=== PATIENT | female | born 1985 | race Caucasian/White ===

== ENCOUNTER → 2021-04-27 | Outpatient (CLI) | payer OTHER ==
--- NOTE | 2021-04-27 16:31 | KCIC ---
EXAM: Brain MRI without contrast. HISTORY: Optic neuritis. Nausea. Memory loss. TECHNIQUE: Multiplanar, multisequence magnetic resonance imaging of the brain was performed without i ntravenous contrast. COMPARISON: None. FINDINGS: There is no restricted diffusion to suggest acute or subacute infarction. There is no susce ptibility effect to suggest hemorrhage. There is no mass effect or midline shift. There is no hydroce phalus. There is a single tiny focus of signal change within the inferior right frontal subcortical w shivam matter. This best seen on sagittal FLAIR images. There is minimal left maxillary sinus mucosal thickening and a small left maxillary sinus mucous rete ntion cyst. The orbits are unremarkable. The mastoid air cells are clear. There are normal flow voids within the cerebral vessels. There is no suspicious calvarial lesion. IMPRESSION: 1. No acute intracranial finding. 2. Single tiny focus of signal change within the right subcortical white matter. The differential inc ludes changes due to chronic small vessel disease and chronic migraine headaches. The imaging appeara nce does not favor demyelinating disease. 3. Note is made that a dedicated orbital MRI protocol with and without contrast may be useful for anamika racterization in this patient with a history of optic neuritis, and if clinically indicated. The orbi ts are unremarkable on this noncontrast brain MRI. Electronically signed by: Gail Landa MD (04/27/2021 4:29 PM) [id number]
== END ==
LOC: KCIC MRI 14:58
PROVIDERS: ATTEND Physician Assistant
DX: G43.909 Migraine, unspecified, not intractable, without status migrainosus (principal); R41.3 Other amnesia; H54.62 Unqualified visual loss, left eye, normal vision right eye; H46.9 Unspecified optic neuritis; R11.0 Nausea; I73.9 Peripheral vascular disease, unspecified; J34.89 Other specified disorders of nose and nasal sinuses
CPT/HCPCS: 70551

== ENCOUNTER → 2021-06-12 | Outpatient (CLI) | payer OTHER ==
[~2021-06-12] MED LIST: LIDOCAINE WITH 8.4% SOD BICARB 3 ML DISP.SYRIN. INJ ONE
[2021-06-12 10:46] VITALS: BP 122/76
[2021-06-12 11:00] VITALS: BP 97/75
--- NOTE | 2021-06-12 11:02 | RAD ---
EXAM: Fluoroscopic guided lumbar puncture. HISTORY: Optic neuritis. TECHNIQUE: The risks of the procedure were discussed with the patient and written and verbal consent was obtained. A timeout was performed. The patient was placed in a prone position on the fluoroscopic table and a suitable entry site into the central canal through the L3-L4 interlaminar space was iden tified with fluoroscopic guidance. This site was prepped and draped in sterile fashion. 1% lidocaine solution without epinephrine was i nfiltrated into the skin and deep soft tissues along the expected needle track. A 22-gauge spinal ne edle was advanced into the thecal sac with intermittent fluoroscopic guidance. A total of 12 mL CSF was collected and sent to the laboratory for requested analysis. The needle was removed and a sterile bandage was placed. The patient tolerated the procedure without complication. The patient was monitored in the post residual unit for approximately 1 hour and was discharged in st able condition without immediate complication. The total fluoroscopy time was less than 1 minute. IMPRESSION: Fluoroscopic guided lumbar puncture with a yield of 12 cc CSF for laboratory analysis. Electronically signed by: Gail Landa MD (06/12/2021 11:00 AM) [id number]
[2021-06-12 11:15] VITALS: BP 147/9
[2021-06-12 11:29] VITALS: BP 137/80
--- NOTE | 2021-06-12 11:29 | NUR ---
discharge instructions reviewed with patient. Pt denies headache at this time
[2021-06-12 11:53] LABS: CSF PROTEIN 41.3 mg/dL (15.0-45.0)
[2021-06-12 12:08] LABS: CSF CLARITY CLEAR; CSF COLOR COLORLESS; CSF RBC COUNT 2 /cmm (Not Established); CSF WBC COUNT 1 /cmm (Not Established)
[2021-06-15 16:10] LABS: ALBUM 3.5 g/dL (2.9-4.4); ALPHA 1 0.3 g/dL (0.0-0.4); ALPHA 2 0.8 g/dL (0.4-1.0); BETA 1.2 g/dL (0.7-1.3); PROTEIN TOTAL 6.7 g/dL (6.0-8.5); SPEP AG RATIO 1.1 (0.7-1.7)
[2021-06-15 20:08] LABS: ANA INTERP Negative (.)
[2021-06-16 15:13] LABS: ALBUMIN,CSF 21 mg/dL (7-29); ALBUMIN,SERUM 4.3 g/dL (3.8-4.8); CSF IGG INDEX 0.8 (0.0-0.7); IGG,SERUM 879 mg/dL (586-1602)
== END | disposition home or self-care (01) ==
LOC: RAD 10:37
PROVIDERS: ATTEND Nurse Practitioner Family
DX: H46.8 Other optic neuritis (principal); Z79.899 Other long term (current) drug therapy
CPT/HCPCS: 36415; 62328; 82607; 82746; 82787; 82945; 83916; 84157; 84165; 84443; 85651; 86038; 87071; 87075; 87102; 87116; 89051; J3490; 62270